=== PATIENT | female | born 1965 | race Caucasian/White ===

== ENCOUNTER 2016-09-24 06:32 | Day surgery (SDC) | payer BC ==
[2016-09-15 18:41] LABS: HEMATOCRIT 39.2 % (36.0-48.0); HEMOGLOBIN 13.8 g/dL (12.0-16.0)
[2016-09-15 18:52] LABS: BUN (BLOOD UREA NITROGEN) 10 MG/DL (6-23); CALCIUM, SERUM 8.9 MG/DL (8.5-10.4); CHLORIDE, SERUM 99 MMOL/L (96-112); CO2 (CARBON DIOXIDE) 30 MMOL/L (24-34); CREATININE 0.94 MG/DL (0.55-1.02); GFR AFRICAN AMERICAN 82 ML/MIN (>=60); GFR NON AFRICAN AMERICAN 71 ML/MIN (>=60); GLUCOSE, SERUM 295 MG/DL (60-99); SODIUM, SERUM 136 MMOL/L (135-148)
[2016-09-15 18:54] LABS: POTASSIUM, SERUM 3.4 MMOL/L (3.5-5.3)
[~2016-09-24 06:32] MED LIST: ACTOS15 PO; GLUCOPHXR7 PO; LANTUSCART SC; LOTE40 PO; NORV10 PO; NOVOPEN SC; PROZAC PO
== END 2016-09-24 23:59 | disposition home or self-care (01) ==
LOC: SDC 06:32
PROVIDERS: Otolaryngology
DX: J32.9 Chronic sinusitis, unspecified (principal); Z53.9 Procedure and treatment not carried out, unspecified reason
CPT/HCPCS: 80048; 82962; 85014; 85018; 93005; J0690